=== PATIENT | female | born 1995 | race Caucasian/White ===

== ENCOUNTER 2017-11-17 00:32 | Emergency (ER) | payer SELFPAY ==
[~2017-11-17] VITALS: Ht 170.2 cm; Wt 66.0 kg
[2017-11-17] MEDS ORDERED: ZIPRASIDONE 20 MG INJ IM ONE ×2 (01:29→03:02)
[2017-11-17] MEDS: ZIPRASIDONE 20 MG INJ IM ONE ×2 (01:39→03:10)
[2017-11-17] MEDS: SODIUM CHLORIDE 0.9% 1,000ML IVBOLUS ONE (01:50)
[2017-11-17] MEDS: PLEASE ENTER ALLERGIES MC SCH ×2 (02:10)
[2017-11-17] MEDS ORDERED: LORazepam 2 MG/ML, 1ML ONE (04:44)
[2017-11-17] MEDS: LORazepam 2 MG/ML, 1ML IM PRN (04:45)
[2017-11-17] MEDS: LORazepam 2 MG/ML, 1ML IVPush ONE (04:49)
[2017-11-17 07:43] VITALS: BP 93/54
== END 2017-11-17 10:27 | disposition home or self-care (01) ==
LOC: ED 10:21
DX: F15.129 Other stimulant abuse with intoxication, unspecified (principal); F24 Shared psychotic disorder
CPT/HCPCS: 96361; 96372; 96374; 99284; J3486; J7030

== ENCOUNTER 2017-11-26 14:09 | Emergency (ER) | payer MEDICAID ==
[~2017-11-26] VITALS: Ht 162.6 cm; Wt 59.4 kg
[2017-11-26 14:15] VITALS: BP 118/72
[2017-11-26 14:43] LABS: BASOPHILS # (AUTO) 0.05 x10^3/uL (0-0.1); BASOPHILS % (AUTO) 1 % (0-1); EOSINOPHILS # (AUTO) 0.15 x10^3/uL (0-0.4); EOSINOPHILS % (AUTO) 2 % (1-7); LYMPHOCYTES # (AUTO) 1.72 x10^3/uL (1-3.4); LYMPHOCYTES % (AUTO) 18 % (22-44); MD NO; MEAN CORPUSCULAR HEMOGLOBIN 30.6 pg (27.0-34.8); MEAN CORPUSCULAR HGB CONC 33.6 g/dL (32.4-35.8); MEAN CORPUSCULAR VOLUME 90.9 fL (80-100); MEAN PLATELET VOLUME 7.4 fL (7.4-10.4); MONOCYTES # (AUTO) 0.76 x10^3/uL (0.2-0.8); MONOCYTES % (AUTO) 8 % (2-9); NEUTROPHILS # (AUTO) 6.77 x10^3/uL (1.8-6.8); NEUTROPHILS % (AUTO) 72 % (42-75); PLATELET COUNT 325 x10^3/uL (130-400); RED BLOOD COUNT 4.49 x10^6/uL (3.82-5.3); RED CELL DISTRIBUTION WIDTH 12.9 % (9.6-15.2)
[2017-11-26 14:57] LABS: ALBUMIN 3.5 g/dL (3.4-5.0); ANION GAP 7 mmol/L (5-15); CALCIUM 8.6 mg/dL (8.5-10.1); CHLORIDE 106 mmol/L (98-107)
[2017-11-26 15:00] LABS: CREATINE KINASE, TOTAL 340 U/L (26-192); CREATININE 0.54 mg/dL (0.55-1.02)
[2017-11-26] MEDS ORDERED: POTASSIUM CHLORIDE 20 MEQ TAB.ER.PRT PO ONE (15:30)
[2017-11-26] MEDS ORDERED: ZIPRASIDONE 20 MG INJ IM ONE (16:30)
== END 2017-11-26 17:29 | disposition home or self-care (01) ==
LOC: ED 15:09 → MERGE 15:09 → ED 17:29
DX: R45.1 Restlessness and agitation (principal)
CPT/HCPCS: 36415; 80048; 82040; 82550; 83735; 85025; 99284

== ENCOUNTER 2017-11-30 10:03 | Emergency (ER) | payer MEDICAID, OTHER ==
[~2017-11-30] VITALS: Ht 162.6 cm; Wt 55.0 kg
[2017-11-30 10:38] VITALS: BP 116/75
[2017-11-30 11:54] LABS: HCG UR SG 1.026 (1.003-1.030); MICROSCOPIC AUTO
[2017-11-30 11:57] LABS: CULTURE INDICATED? YES
== END 2017-11-30 12:33 | disposition home or self-care (01) ==
LOC: EDBD 10:03 → ED 12:27
DX: N30.90 Cystitis, unspecified without hematuria (principal); N39.0 Urinary tract infection, site not specified; F15.10 Other stimulant abuse, uncomplicated
CPT/HCPCS: 81001; 81025; 87077; 87086; 87186; 99284

== ENCOUNTER 2017-12-06 23:42 | Emergency (ER) | payer MEDICAID ==
[~2017-12-06] VITALS: Ht 162.6 cm; Wt 52.8 kg
[2017-12-07 00:43] VITALS: BP 103/74
== END 2017-12-07 00:45 | disposition home or self-care (01) ==
LOC: ED 12-07 00:11
DX: H92.09 Otalgia, unspecified ear (principal); Z72.9 Problem related to lifestyle, unspecified; F17.200 Nicotine dependence, unspecified, uncomplicated; J02.9 Acute pharyngitis, unspecified
CPT/HCPCS: 99282

== ENCOUNTER 2018-01-04 15:25 | Emergency (ER) | payer MEDICAID ==
[~2018-01-04] VITALS: Ht 162.6 cm; Wt 60.0 kg
[2018-01-04] MEDS ORDERED: LORazepam 2 MG/ML, 1ML ONE (15:29)
[2018-01-04] MEDS ORDERED: SODIUM CHLORIDE 0.9% 1,000ML IVBOLUS ONE (15:30)
[2018-01-04] MEDS ORDERED: LORazepam 2 MG/ML, 1ML IVPush ONE (15:30)
[2018-01-04] MEDS ORDERED: PLEASE ENTER HEIGHT AND WEIGHT MC SCH (16:00)
[2018-01-04 19:26] VITALS: BP 120/66
== END 2018-01-04 21:31 | disposition home or self-care (01) ==
LOC: ED 20:35
DX: Z00.01 Encounter for general adult medical examination with abnormal findings (principal); F15.10 Other stimulant abuse, uncomplicated
CPT/HCPCS: 36415; 80047; 96361; 96374; 99285; J2060; J7030

== ENCOUNTER 2018-03-11 21:04 | Emergency (ER) | payer MEDICAID ==
[~2018-03-11] VITALS: Ht 160 cm; Wt 52.0 kg
[2018-03-11] MEDS ORDERED: LORazepam 1MG TABLET PO ONE ×2 (21:30→23:30)
[2018-03-11 21:48] LABS: BASOPHILS # (AUTO) 0.03 x10^3/uL (0-0.1); BASOPHILS % (AUTO) 0 % (0-1); EOSINOPHILS # (AUTO) 0.04 x10^3/uL (0-0.4); EOSINOPHILS % (AUTO) 0 % (1-7); LYMPHOCYTES % (AUTO) 15 % (22-44); MD NO; MEAN CORPUSCULAR HEMOGLOBIN 29.6 pg (27.0-34.8); MEAN CORPUSCULAR HGB CONC 33.4 g/dL (32.4-35.8); MEAN CORPUSCULAR VOLUME 88.7 fL (80-100); MEAN PLATELET VOLUME 8.4 fL (7.4-10.4); MONOCYTES # (AUTO) 0.55 x10^3/uL (0.2-0.8); MONOCYTES % (AUTO) 6 % (2-9); NEUTROPHILS # (AUTO) 7.16 x10^3/uL (1.8-6.8); NEUTROPHILS % (AUTO) 78 % (42-75); PLATELET COUNT 268 x10^3/uL (130-400); RED BLOOD COUNT 4.52 x10^6/uL (3.82-5.3); RED CELL DISTRIBUTION WIDTH 13.5 % (9.6-15.2)
[2018-03-11] MEDS ORDERED: LORazepam 1MG TABLET ONE (21:49)
[2018-03-11 21:57] LABS: ANION GAP 7 mmol/L (5-15); CALCIUM 8.8 mg/dL (8.5-10.1); CHLORIDE 107 mmol/L (98-107)
[2018-03-11 22:05] LABS: ALANINE AMINOTRANSFERASE 41 U/L (12-78); ALKALINE PHOSPHATASE 62 U/L (45-117); BILIRUBIN,TOTAL 0.4 mg/dL (0.2-1.0); SALICYLATE LEVEL 2.5 mg/dL (2.8-20.0); TOTAL PROTEIN 7.4 g/dL (6.4-8.2)
[2018-03-11 22:08] LABS: ACETAMINOPHEN < 2 mcg/mL (10-30)
[2018-03-12] MEDS ORDERED: ZIPRASIDONE 20 MG INJ IM ONE ×2 (00:30)
[2018-03-12] MEDS ORDERED: LORazepam 1MG TABLET ONE (00:30)
[2018-03-12 04:50] VITALS: BP 102/56
[2018-03-12] MEDS ORDERED: EPINEPHRINE 1 MG/ML, 1ML ONE (04:59)
[2018-03-12] MEDS ORDERED: methylPREDNISolone SOD SUCC 125 MG/2 ML ONE (04:59)
[2018-03-12] MEDS ORDERED: FAMOTIDINE 20 MG/2 ML ONE (04:59)
[2018-03-12] MEDS ORDERED: DIPHENHYDRAMINE 50 MG/ML, 1ML ONE (04:59)
== END 2018-03-12 04:50 | disposition home or self-care (01) ==
LOC: ED 23:37
DX: F16.159 Hallucinogen abuse with hallucinogen-induced psychotic disorder, unspecified (principal); F15.10 Other stimulant abuse, uncomplicated; F23 Brief psychotic disorder
CPT/HCPCS: 36415; 80053; 80307; 80329; 84703; 85025; 93005; 96372; 99285; J3486; G0480

== ENCOUNTER 2018-04-20 20:01 | Emergency (ER) | payer MEDICAID ==
[~2018-04-20] VITALS: Ht 162.6 cm; Wt 48.0 kg
[2018-04-20] MEDS ORDERED: LORazepam 1MG TABLET PO ONE (21:00)
[2018-04-20 22:48] VITALS: BP 103/63
== END 2018-04-20 22:51 | disposition home or self-care (01) ==
LOC: ED 22:15
DX: F15.129 Other stimulant abuse with intoxication, unspecified (principal); F12.10 Cannabis abuse, uncomplicated
CPT/HCPCS: 99283

== ENCOUNTER 2018-05-02 16:15 | Emergency (ER) | payer MEDICAID ==
[~2018-05-02] VITALS: Ht 162.6 cm; Wt 50.0 kg
[2018-05-02 17:57] VITALS: BP 105/57
== END 2018-05-02 19:20 | disposition home or self-care (01) ==
LOC: ED 19:05
DX: F15.129 Other stimulant abuse with intoxication, unspecified (principal); F41.9 Anxiety disorder, unspecified; F22 Delusional disorders
CPT/HCPCS: 99283

== ENCOUNTER 2018-05-12 20:33 | Emergency (ER) | payer MEDICAID ==
[~2018-05-12] VITALS: Ht 162.6 cm; Wt 50.0 kg
[2018-05-12 20:33] VITALS: BP 108/70
== END 2018-05-12 21:52 | disposition home or self-care (01) ==
LOC: ED 21:01
DX: F15.129 Other stimulant abuse with intoxication, unspecified (principal)
CPT/HCPCS: 99283

== ENCOUNTER 2018-09-18 04:28 | Emergency (ER) | payer MEDICAID ==
[~2018-09-18] VITALS: Ht 157.5 cm; Wt 60.0 kg
[2018-09-18] MEDS ORDERED: HALOPERIDOL 5 MG/ML ONE (05:20)
[2018-09-18] MEDS ORDERED: HALOPERIDOL 5 MG/ML IM ONE (06:00)
[2018-09-18 09:24] VITALS: BP 107/52
== END 2018-09-18 11:05 | disposition home or self-care (01) ==
LOC: MERGE 10:45 → EDBD 10:45 → ED 10:45
DX: F15.959 Other stimulant use, unspecified with stimulant-induced psychotic disorder, unspecified (principal)
CPT/HCPCS: 96372; 99283; J1630

== ENCOUNTER 2018-09-24 21:00 | Emergency (ER) | payer MEDICAID ==
[~2018-09-24] VITALS: Ht 170.2 cm; Wt 60.0 kg
[2018-09-24 21:05] VITALS: BP 103/67
== END 2018-09-24 21:27 | disposition home or self-care (01) ==
LOC: ED 21:20
DX: T43.625A Adverse effect of amphetamines, initial encounter (principal); F41.9 Anxiety disorder, unspecified; F19.229 Other psychoactive substance dependence with intoxication, unspecified; F29 Unspecified psychosis not due to a substance or known physiological condition; Z72.9 Problem related to lifestyle, unspecified; Z75.9 Unspecified problem related to medical facilities and other health care; Z63.8 Other specified problems related to primary support group; Y92.89 Other specified places as the place of occurrence of the external cause
CPT/HCPCS: 99283

== ENCOUNTER 2018-09-28 | Emergency (ER) | payer MEDICAID ==
[~2018-09-28] VITALS: Ht 167.6 cm; Wt 60.0 kg
[2018-09-28] MEDS ORDERED: DIPHENHYDRAMINE 50 MG/ML, 1ML IVPush ONE (00:30)
[2018-09-28 00:32] LABS: BASOPHILS # (AUTO) 0.06 x10^3/uL (0-0.1); BASOPHILS % (AUTO) 0 % (0-1); EOSINOPHILS # (AUTO) 0.06 x10^3/uL (0-0.4); EOSINOPHILS % (AUTO) 0 % (1-7); LYMPHOCYTES # (AUTO) 1.69 x10^3/uL (1-3.4); LYMPHOCYTES % (AUTO) 10 % (22-44); MD NO; MEAN CORPUSCULAR HEMOGLOBIN 32.6 pg (27.0-34.8); MEAN CORPUSCULAR HGB CONC 34.5 g/dL (32.4-35.8); MEAN CORPUSCULAR VOLUME 94.4 fL (80-100); MEAN PLATELET VOLUME 7.1 fL (7.4-10.4); MONOCYTES # (AUTO) 0.89 x10^3/uL (0.2-0.8); MONOCYTES % (AUTO) 5 % (2-9); NEUTROPHILS # (AUTO) 14.62 x10^3/uL (1.8-6.8); NEUTROPHILS % (AUTO) 84 % (42-75); PLATELET COUNT 334 x10^3/uL (130-400); RED CELL DISTRIBUTION WIDTH 11.5 % (9.6-15.2)
[2018-09-28 00:41] LABS: ALANINE AMINOTRANSFERASE 55 U/L (12-78); ALBUMIN 2.8 g/dL (3.4-5.0); ANION GAP 13 mmol/L (5-15); CALCIUM 8.5 mg/dL (8.5-10.1); CHLORIDE 109 mmol/L (98-107); CREATININE 0.51 mg/dL (0.55-1.02)
[2018-09-28 00:43] LABS: ACETAMINOPHEN < 2 mcg/mL (10-30); ALKALINE PHOSPHATASE 151 U/L (45-117); BILIRUBIN,TOTAL 0.9 mg/dL (0.2-1.0); TOTAL PROTEIN 6.6 g/dL (6.4-8.2)
[2018-09-28] MEDS ORDERED: DIPHENHYDRAMINE 50 MG/ML, 1ML ONE (01:26)
[2018-09-28 06:21] VITALS: BP 98/60
== END 2018-09-28 06:49 | disposition home or self-care (01) ==
LOC: ED 00:06
DX: O99.324 Drug use complicating childbirth (principal); O99.344 Other mental disorders complicating childbirth; O99.334 Smoking (tobacco) complicating childbirth; F15.229 Other stimulant dependence with intoxication, unspecified; F29 Unspecified psychosis not due to a substance or known physiological condition; Z87.440 Personal history of urinary (tract) infections; Z3A.28 28 weeks gestation of pregnancy; Y92.89 Other specified places as the place of occurrence of the external cause
CPT/HCPCS: 36415; 70450; 76856; 80053; 80307; 80329; 85025; 96374; 99285; J1200; G0480

== ENCOUNTER 2018-09-28 10:58 | Emergency (ER) | payer MEDICAID ==
[~2018-09-28] VITALS: Ht 154.9 cm; Wt 63.5 kg
[2018-09-28 12:25] LABS: AMPHETAMINE SCREEN, URINE Positive (Negative); BARBITURATE SCREEN, URINE Negative (Negative); BENZODIAZEPINE SCREEN, URINE Negative (Negative); CANNABINOID SCREEN, URINE Negative (Negative); COCAINE SCREEN, URINE Negative (Negative); METHADONE SCREEN, URINE Negative (Negative); OPIATE SCREEN, URINE Negative (Negative)
[2018-09-28 15:57] VITALS: BP 103/81
== END 2018-09-28 16:51 | disposition home or self-care (01) ==
LOC: ED 11:06
DX: O99.322 Drug use complicating pregnancy, second trimester (principal); O99.332 Smoking (tobacco) complicating pregnancy, second trimester; F15.10 Other stimulant abuse, uncomplicated; F17.200 Nicotine dependence, unspecified, uncomplicated; F29 Unspecified psychosis not due to a substance or known physiological condition; Z3A.28 28 weeks gestation of pregnancy; Z72.9 Problem related to lifestyle, unspecified; Z63.8 Other specified problems related to primary support group
CPT/HCPCS: 36415; 80074; 80307; 86592; 87521; 87806; 99284; G0475

== ENCOUNTER 2018-10-05 10:40 | Inpatient (IN) | payer MEDICAID ==
[~2018-10-05] VITALS: Ht 165.1 cm; Wt 61.2 kg
[2018-10-05] MEDS ORDERED: LORazepam 2 MG/ML, 1ML ONE ×2 (10:50→12:10)
[2018-10-05] MEDS ORDERED: LORazepam 2 MG/ML, 1ML IM ONE ×2 (11:00→13:00)
[2018-10-05] MEDS ORDERED: SODIUM CHLORIDE FLUSH 10ML SYR IVF ONE (11:30)
[2018-10-05] MEDS ORDERED: SODIUM CHLORIDE 0.9% 1,000ML IVBOLUS ONE (11:30)
[2018-10-05 11:36] LABS: BASOPHILS # (AUTO) 0.04 x10^3/uL (0-0.1); BASOPHILS % (AUTO) 0 % (0-1); EOSINOPHILS # (AUTO) 0.06 x10^3/uL (0-0.4); EOSINOPHILS % (AUTO) 1 % (1-7); LYMPHOCYTES # (AUTO) 1.91 x10^3/uL (1-3.4); LYMPHOCYTES % (AUTO) 16 % (22-44); MD NO; MEAN CORPUSCULAR HEMOGLOBIN 32.5 pg (27.0-34.8); MEAN CORPUSCULAR HGB CONC 34.6 g/dL (32.4-35.8); MEAN CORPUSCULAR VOLUME 93.8 fL (80-100); MONOCYTES # (AUTO) 0.77 x10^3/uL (0.2-0.8); MONOCYTES % (AUTO) 6 % (2-9); NEUTROPHILS # (AUTO) 9.27 x10^3/uL (1.8-6.8); NEUTROPHILS % (AUTO) 77 % (42-75); PLATELET COUNT 341 x10^3/uL (130-400); RED BLOOD COUNT 3.82 x10^6/uL (3.82-5.3); RED CELL DISTRIBUTION WIDTH 11.5 % (9.6-15.2)
[2018-10-05 11:51] LABS: ALANINE AMINOTRANSFERASE 68 U/L (12-78); ALBUMIN 2.8 g/dL (3.4-5.0); ANION GAP 8 mmol/L (5-15); CALCIUM 8.6 mg/dL (8.5-10.1); CHLORIDE 107 mmol/L (98-107)
[2018-10-05 11:54] LABS: ALKALINE PHOSPHATASE 151 U/L (45-117); BILIRUBIN,TOTAL 0.6 mg/dL (0.2-1.0); CREATININE 0.52 mg/dL (0.55-1.02); TOTAL PROTEIN 6.7 g/dL (6.4-8.2)
[2018-10-05 16:00] VITALS: BP 95/61
[2018-10-05] MEDS ORDERED: ONDANSETRON 2MG/ML, 2ML IVPush PRN (16:00)
[2018-10-05] MEDS: LORazepam 2 MG/ML, 1ML IVPush PRN (16:17)
[2018-10-05] MEDS: SODIUM CHLORIDE 0.9% 1,000 ML IV SCH (16:17)
[2018-10-05] MEDS: NICOTINE 14MG/24 HR PATCH.TD24 TD SCH (16:24)
[2018-10-05] MEDS ORDERED: PLEASE ENTER PATIENTS HEIGHT MC SCH (16:30)
[2018-10-05 16:31] LABS: CREATINE KINASE, TOTAL 333 U/L (26-192)
[2018-10-05 21:45] VITALS: BP 102/64
[2018-10-06] MEDS: SODIUM CHLORIDE 0.9% 1,000 ML IV SCH ×2 (01:48→19:51)
[2018-10-06 02:15] VITALS: BP 99/60
[2018-10-06 03:22] LABS: CULTURE INDICATED? YES; MICROSCOPIC INDICATED
[2018-10-06 03:36] LABS: AMPHETAMINE SCREEN, URINE Positive (Negative); BARBITURATE SCREEN, URINE Negative (Negative); BENZODIAZEPINE SCREEN, URINE Negative (Negative); CANNABINOID SCREEN, URINE Negative (Negative); COCAINE SCREEN, URINE Negative (Negative); METHADONE SCREEN, URINE Negative (Negative); OPIATE SCREEN, URINE Negative (Negative)
[2018-10-06 06:49] VITALS: BP 96/57
[2018-10-06 14:25] VITALS: BP 99/83
[2018-10-06] MEDS: NICOTINE 14MG/24 HR PATCH.TD24 TD SCH (16:25)
[2018-10-06 19:09] VITALS: BP 101/63
[2018-10-06] MEDS: LORazepam 2 MG/ML, 1ML IVPush PRN (19:51)
[2018-10-06] MEDS ORDERED: DOCUSATE 100 MG CAPSULE PO PRN (20:30)
[2018-10-07 01:50] VITALS: BP 125/76
[2018-10-07 04:58] LABS: BASOPHILS # (AUTO) 0.02 x10^3/uL (0-0.1); BASOPHILS % (AUTO) 0 % (0-1); EOSINOPHILS # (AUTO) 0.08 x10^3/uL (0-0.4); EOSINOPHILS % (AUTO) 1 % (1-7); LYMPHOCYTES # (AUTO) 1.89 x10^3/uL (1-3.4); LYMPHOCYTES % (AUTO) 23 % (22-44); MD NO; MEAN CORPUSCULAR HEMOGLOBIN 32.2 pg (27.0-34.8); MEAN CORPUSCULAR HGB CONC 34.1 g/dL (32.4-35.8); MEAN CORPUSCULAR VOLUME 94.6 fL (80-100); MEAN PLATELET VOLUME 7.3 fL (7.4-10.4); MONOCYTES # (AUTO) 0.59 x10^3/uL (0.2-0.8); MONOCYTES % (AUTO) 7 % (2-9); NEUTROPHILS # (AUTO) 5.69 x10^3/uL (1.8-6.8); NEUTROPHILS % (AUTO) 69 % (42-75); PLATELET COUNT 237 x10^3/uL (130-400); RED BLOOD COUNT 3.32 x10^6/uL (3.82-5.3); RED CELL DISTRIBUTION WIDTH 11.8 % (9.6-15.2)
[2018-10-07 05:00] LABS: CHLORIDE 114 mmol/L (98-107)
[2018-10-07 05:05] LABS: ALANINE AMINOTRANSFERASE 53 U/L (12-78); ALBUMIN 2.1 g/dL (3.4-5.0); ALKALINE PHOSPHATASE 113 U/L (45-117); ANION GAP 7 mmol/L (5-15); BILIRUBIN,TOTAL 0.3 mg/dL (0.2-1.0); CALCIUM 7.6 mg/dL (8.5-10.1); CREATINE KINASE, TOTAL 144 U/L (26-192); CREATININE 0.35 mg/dL (0.55-1.02); TOTAL PROTEIN 5.3 g/dL (6.4-8.2)
[2018-10-07 08:47] VITALS: BP 102/69
[2018-10-07] MEDS: PRENATAL VIT/IRON/FA 1 EACH TABLET PO SCH (09:14)
[2018-10-07 12:50] VITALS: BP 97/64
[2018-10-07] MEDS: ACETAMINOPHEN 325 MG TABLET PO PRN (16:35)
[2018-10-07] MEDS: LORazepam 2 MG/ML, 1ML IVPush PRN (16:35)
[2018-10-07] MEDS: NICOTINE 14MG/24 HR PATCH.TD24 TD SCH (16:35)
[2018-10-07 19:23] VITALS: BP 103/68
[2018-10-08] MEDS: ACETAMINOPHEN 325 MG TABLET PO PRN ×3 (01:24→21:22)
[2018-10-08 01:31] VITALS: BP 106/72
[2018-10-08] MEDS: LORazepam 2 MG/ML, 1ML IVPush PRN (02:25)
[2018-10-08 08:30] VITALS: BP 89/53
[2018-10-08] MEDS: PRENATAL VIT/IRON/FA 1 EACH TABLET PO SCH (11:15)
[2018-10-08 13:00] VITALS: BP 103/66
[2018-10-08] MEDS ORDERED: metroNIDAZOLE 500 MG TABLET ONE (13:48)
[2018-10-08] MEDS: metroNIDAZOLE 500 MG TABLET PO SCH ×2 (13:49→21:22)
[2018-10-08] MEDS: NICOTINE 14MG/24 HR PATCH.TD24 TD SCH (16:04)
[2018-10-08] MEDS ORDERED: metroNIDAZOLE 500 MG TABLET PO SCH (21:00)
[2018-10-08 21:18] VITALS: BP 103/65
[2018-10-09 02:22] VITALS: BP 117/62
[2018-10-09 07:10] VITALS: BP 101/64
[2018-10-09] MEDS: metroNIDAZOLE 500 MG TABLET PO SCH (10:09)
[2018-10-09] MEDS: PRENATAL VIT/IRON/FA 1 EACH TABLET PO SCH (10:09)
[2018-10-09] MEDS ORDERED: DOCU-131 PO (10:11)
[2018-10-09] MEDS ORDERED: Prenatal Vit/Iron/Fa PO (10:11)
[2018-10-09] MEDS ORDERED: METR500T PO (10:11)
== END 2018-10-09 14:03 | disposition home or self-care (01) | DRG 831 ==
LOC: ED 12:19 → EDIP 14:27 → 3NE 15:50
PROVIDERS: ADMIT Hospitalist; ATTEND Hospitalist
DX: O9A.213 Injury, poisoning and certain other consequences of external causes complicating pregnancy, third trimester (principal); G92 Toxic encephalopathy; M62.82 Rhabdomyolysis; O41.03X0 Oligohydramnios, third trimester, not applicable or unspecified; O98.413 Viral hepatitis complicating pregnancy, third trimester; T43.621A Poisoning by amphetamines, accidental (unintentional), initial encounter; E86.0 Dehydration; T40.3X1A Poisoning by methadone, accidental (unintentional), initial encounter; O16.3 Unspecified maternal hypertension, third trimester; O99.323 Drug use complicating pregnancy, third trimester; B19.20 Unspecified viral hepatitis C without hepatic coma; N76.0 Acute vaginitis; F15.129 Other stimulant abuse with intoxication, unspecified; O99.283 Endocrine, nutritional and metabolic diseases complicating pregnancy, third trimester; R21 Rash and other nonspecific skin eruption; O99.353 Diseases of the nervous system complicating pregnancy, third trimester; Z3A.29 29 weeks gestation of pregnancy; Y92.89 Other specified places as the place of occurrence of the external cause; Z87.440 Personal history of urinary (tract) infections
CPT/HCPCS: 36415; 76815; 80053; 80074; 80307; 81001; 82550; 83605; 83735; 84100; 85025; 86592; 86762; 86850; 86900; 87040; 87086; 87521; 87806; 96360; 96361; 96372; G0378; G0475; J2060; J7030

== ENCOUNTER 2018-10-11 18:56 | Emergency (ER) | payer MEDICAID ==
[~2018-10-11] VITALS: Ht 170.2 cm; Wt 65.0 kg
[~2018-10-11 18:56] MED LIST: DOCU-131 PO; METR500T PO; Prenatal Vit/Iron/Fa PO
[2018-10-11 19:17] VITALS: BP 127/69
[2018-10-11] MEDS ORDERED: DIPHENHYDRAMINE 50 MG CAPSULE ONE (19:46)
[2018-10-11 19:59] LABS: BASOPHILS # (AUTO) 0.05 x10^3/uL (0-0.1); BASOPHILS % (AUTO) 0 % (0-1); EOSINOPHILS # (AUTO) 0.04 x10^3/uL (0-0.4); EOSINOPHILS % (AUTO) 0 % (1-7); LYMPHOCYTES # (AUTO) 1.62 x10^3/uL (1-3.4); LYMPHOCYTES % (AUTO) 13 % (22-44); MD NO; MEAN CORPUSCULAR HEMOGLOBIN 32.3 pg (27.0-34.8); MEAN CORPUSCULAR HGB CONC 34.7 g/dL (32.4-35.8); MEAN PLATELET VOLUME 7.3 fL (7.4-10.4); MONOCYTES # (AUTO) 0.85 x10^3/uL (0.2-0.8); MONOCYTES % (AUTO) 7 % (2-9); NEUTROPHILS % (AUTO) 80 % (42-75); PLATELET COUNT 343 x10^3/uL (130-400); RED BLOOD COUNT 3.76 x10^6/uL (3.82-5.3); RED CELL DISTRIBUTION WIDTH 12.2 % (9.6-15.2)
[2018-10-11] MEDS ORDERED: DIPHENHYDRAMINE 25 MG CAPSULE PO ONE (20:00)
[2018-10-11 20:04] LABS: ANION GAP 12 mmol/L (5-15); CALCIUM 8.8 mg/dL (8.5-10.1); CHLORIDE 106 mmol/L (98-107); CREATININE 0.56 mg/dL (0.55-1.02)
[2018-10-11 20:07] LABS: CREATINE KINASE, TOTAL 180 U/L (26-192)
== END 2018-10-12 02:20 | disposition home or self-care (01) ==
LOC: ED 19:15
DX: F15.129 Other stimulant abuse with intoxication, unspecified (principal); O26.893 Other specified pregnancy related conditions, third trimester; Z3A.30 30 weeks gestation of pregnancy; L25.1 Unspecified contact dermatitis due to drugs in contact with skin; Z72.9 Problem related to lifestyle, unspecified
CPT/HCPCS: 36415; 80048; 82550; 85025; 99284; Q0163

== ENCOUNTER 2018-10-18 23:47 | Emergency (ER) | payer MEDICAID ==
[~2018-10-18] VITALS: Ht 162.6 cm; Wt 59.9 kg
[2018-10-18 23:53] VITALS: BP 106/58
== END 2018-10-19 01:22 | disposition other institution (70) ==
LOC: ED 23:59
DX: O36.8130 Decreased fetal movements, third trimester, not applicable or unspecified (principal); Z3A.30 30 weeks gestation of pregnancy; R10.32 Left lower quadrant pain; Z72.9 Problem related to lifestyle, unspecified
CPT/HCPCS: 99283

== ENCOUNTER 2018-10-19 01:01 | Outpatient (CLI) | payer MEDICAID ==
[~2018-10-19] VITALS: Ht 162.6 cm; Wt 62.0 kg
[2018-10-19 02:33] LABS: CLUE CELLS NONE SEEN (NONE SEEN); WET PREP WBCS NONE SEEN (FEW)
== END 2018-10-19 03:50 | disposition home or self-care (01) ==
LOC: LDOP 01:01
PROVIDERS: ATTEND Obstetrics & Gynecology
DX: O36.8130 Decreased fetal movements, third trimester, not applicable or unspecified (principal); Z3A.32 32 weeks gestation of pregnancy
CPT/HCPCS: 59025; 87210; 87491; 87591; 87808; 89060; 99211; G0463; Q0114

== ENCOUNTER 2018-10-25 12:20 | Emergency (ER) | payer MEDICAID ==
[2018-10-25 19:25] VITALS: BP 138/72
== END 2018-10-25 21:33 | disposition home or self-care (01) ==
LOC: ED 19:03
DX: F15.922 Other stimulant use, unspecified with intoxication with perceptual disturbance (principal); R44.3 Hallucinations, unspecified; Z87.440 Personal history of urinary (tract) infections; Z72.9 Problem related to lifestyle, unspecified
CPT/HCPCS: 99283

== ENCOUNTER 2019-06-24 13:20 | Emergency (ER) | payer MEDICAID ==
[~2019-06-24] VITALS: Ht 162.6 cm; Wt 67.2 kg
[2019-06-24 14:26] VITALS: BP 121/77
== END 2019-06-24 16:13 | disposition home or self-care (01) ==
LOC: ED 14:19
DX: F15.129 Other stimulant abuse with intoxication, unspecified (principal); R33.9 Retention of urine, unspecified
CPT/HCPCS: 81001; 87086; 87147; 99284

== ENCOUNTER 2019-12-05 09:51 | Emergency (ER) | payer SELFPAY ==
[~2019-12-05] VITALS: Ht 162.6 cm; Wt 59.7 kg
[~2019-12-05 09:51] MED LIST changes: +AMOX1TAB64 PO; +IBUP-1222 PO
[2019-12-05 10:00] VITALS: BP 105/58
[2019-12-05] MEDS ORDERED: LORazepam 2 MG/ML, 1ML ONE (10:14)
--- NOTE | 2019-12-05 10:23 | NUR ---
pt presents to ed after admitting to meth use. pt is alternating between crying and laughing and talking very quickly and is hard to understand. pt is not aggressive toward staff at this time. pt is agreeable to medication "to help me calm down," but is refusing vs and physical exam. upon returing to room, pt was unclothed and continued to show private areas despite being asked to remain covered. pt educated that it is inappropriate to be unclothed and was agreeable to covering up.
--- NOTE | 2019-12-05 10:29 | NUR ---
pt medicated per mar with assistance from edta. pt calm and cooperative and resting, covered, in [place].
[2019-12-05] MEDS ORDERED: LORazepam 2 MG/ML, 1ML IM ONE (10:30)
--- NOTE | 2019-12-05 10:34 | NUR ---
pt continues to yell and fight with "the elva and demons," and is tearful and appears scared. pt is unable to carry out a conversation in reality. Dr. Rodriguez notified and will add medication.
--- NOTE | 2019-12-05 11:48 | NUR ---
pt resting in room with eyes closed and lights dimmed. pt calm with even, unlabored respirations. no needs expressed. call light within reach.
--- NOTE | 2019-12-05 12:51 | NUR ---
pt resting in room with eyes closed and lights dimmed. pt appears asleep. when this rn attempts to wake pt, she yells that there is a cat in the corner of the room and immediately falls back to sleep. pt unable to stay awake for more than a few moments. not ready for dc at this time. will continue to monitor.
--- NOTE | 2019-12-05 14:07 | NUR ---
pt remains in position of comfort in [facility]. respirations even and unlabored. no distress noted. upon attempting to wake pt, she mumbles and closes eyes again. not appropriate to ambulate at this time. will continue to monitor.
--- NOTE | 2019-12-05 15:34 | NUR ---
pt resting in gurney in position of comfort. respirations even and unlabored. pt unable to keep eyes open for more than 3 seconds before falling back to sleep. pt continues to refuse monitoring equipment. unable to assess vs. no distress noted. will continue to monitor.
--- NOTE | 2019-12-05 16:57 | NUR ---
pt able to awakena nd ambulate with steady gait. pt attempting to dress self. plan to dc after dressed.
--- NOTE | 2019-12-05 17:06 | NUR ---
Dr. Isaacs to bs per pt request. pt states she has a "blocked nose" that she wants checked out.
--- NOTE | 2019-12-05 17:35 | NUR ---
LUNCH RN: PT CURRENTLY GETTING DRESSED. GIVEN CLOTHING BY PRIMARY RN. PT ABLE TO AMBULATE WITH STEADY GAIT. DC PAPERS GIVEN TO PT WELL BUS PASS
== END 2019-12-05 17:38 | disposition home or self-care (01) ==
LOC: ED 11:27
DX: F15.129 Other stimulant abuse with intoxication, unspecified (principal)
CPT/HCPCS: 96372; 99281; J2060; 99283

== ENCOUNTER 2020-07-19 02:47 | Emergency (ER) | payer MEDICAID ==
[~2020-07-19] VITALS: Ht 162.6 cm; Wt 80.6 kg
--- NOTE | 2020-07-19 03:11 | NUR ---
PT STATES SHE CAME IN "BECAUSE I HAVE ROACHES". PT UNABLE TO ELABORATE. PT IS EXTREMELY FIDGETY, STATES SHE RECENTLY USED METH. PT GROSS NEURO INTACT, ANOx4, VSS, PT DENIES MEDICAL HISTORY. PULSES 2+. WCTM. PT PLACED ON SPO2/BP MONITORING.
--- NOTE | 2020-07-19 03:33 | NUR ---
Franklin CURTIS and Aleyda KANG at for eval and poc. pt repeatedly itching self and cannot stop moving in [place]. pt NAD, WCTM. given warm blanket for comfort.
--- NOTE | 2020-07-19 04:34 | NUR ---
PT AMBULATED TO AND FROM RESTROOM. URINE DRUG SCREEN WALKED TO LAB, PT BACK TO ROOM, LAYING ON ALIX PEREZ, REFUSING VITALS AT THIS TIME. MO. MTF.
[2020-07-19 05:02] LABS: AMPHETAMINE SCREEN, URINE Positive (Negative); BARBITURATE SCREEN, URINE Negative (Negative); BENZODIAZEPINE SCREEN, URINE Negative (Negative); CANNABINOID SCREEN, URINE Negative (Negative); COCAINE SCREEN, URINE Negative (Negative); METHADONE SCREEN, URINE Negative (Negative); OPIATE SCREEN, URINE Negative (Negative)
--- NOTE | 2020-07-19 05:08 | NUR ---
PT RESTING ON GURNEY, NAD, EYES CLOSED, APPEARS COMFORTABLE. LIGHTS DIMMED FOR COMFORT, WCTM. MTF.
[2020-07-19 05:29] LABS: BASOPHILS # (AUTO) 0.05 x10^3/uL (0-0.1); BASOPHILS % (AUTO) 1 % (0-1); EOSINOPHILS # (AUTO) 0.34 x10^3/uL (0-0.4); EOSINOPHILS % (AUTO) 4 % (1-7); LYMPHOCYTES # (AUTO) 2.63 x10^3/uL (1-3.4); LYMPHOCYTES % (AUTO) 28 % (22-44); MD NO; MEAN CORPUSCULAR HEMOGLOBIN 30.3 pg (27.0-34.8); MEAN CORPUSCULAR HGB CONC 33.8 g/dL (32.4-35.8); MEAN CORPUSCULAR VOLUME 89.6 fL (80-100); MEAN PLATELET VOLUME 7.9 fL (7.4-10.4); MONOCYTES # (AUTO) 0.62 x10^3/uL (0.2-0.8); MONOCYTES % (AUTO) 7 % (2-9); NEUTROPHILS # (AUTO) 5.77 x10^3/uL (1.8-6.8); NEUTROPHILS % (AUTO) 61 % (42-75); PLATELET COUNT 327 x10^3/uL (130-400); RED BLOOD COUNT 4.41 x10^6/uL (3.82-5.3); RED CELL DISTRIBUTION WIDTH 12.5 % (9.6-15.2)
[2020-07-19 05:41] LABS: ALBUMIN 4.1 g/dL (3.4-5.0); ANION GAP 7 mmol/L (5-15); CALCIUM 8.6 mg/dL (8.5-10.1); CHLORIDE 114 mmol/L (98-107)
[2020-07-19 05:46] LABS: ALANINE AMINOTRANSFERASE 92 U/L (12-78); ALKALINE PHOSPHATASE 100 U/L (45-117); BILIRUBIN,TOTAL 0.6 mg/dL (0.2-1.0); CREATININE 0.71 mg/dL (0.55-1.02); TOTAL PROTEIN 7.3 g/dL (6.4-8.2)
[2020-07-19 05:54] LABS: HCG UR SG 1.042 (1.003-1.030)
--- NOTE | 2020-07-19 06:02 | NUR ---
Patient given discharge instructions and they have confirmed that they understand the instructions. Patient ambulatory. NAD, VSS, NO BELONGINGS LEFT IN ROOM AT TIME OF DC.
[2020-07-19 06:03] VITALS: BP 101/53
== END 2020-07-19 06:05 | disposition home or self-care (01) ==
LOC: ED 05:50
DX: F15.20 Other stimulant dependence, uncomplicated (principal); F41.9 Anxiety disorder, unspecified; F22 Delusional disorders
CPT/HCPCS: 36415; 80053; 80307; 81025; 84703; 85025; 99283

== ENCOUNTER 2020-07-24 11:24 | Emergency (ER) | payer MEDICAID ==
[~2020-07-24] VITALS: Ht 165.1 cm; Wt 145.0 kg
--- NOTE | 2020-07-24 12:03 | NUR ---
Pt given Haldol by [facility] [employer]. Not a safe DC at this time. Arousable, but lethargic. CN and provider aware. Will monitor.
--- NOTE | 2020-07-24 12:24 | NUR ---
Pt sleeping, resp even, unlabored. Bed rails up, bed locked.
[2020-07-24 12:45] VITALS: BP 108/46
--- NOTE | 2020-07-24 13:07 | NUR ---
Pt able to ambulate. Provided with taxi voucher.
== END 2020-07-24 13:10 | disposition home or self-care (01) ==
LOC: ED 12:55
DX: F15.129 Other stimulant abuse with intoxication, unspecified (principal); R41.82 Altered mental status, unspecified; R45.1 Restlessness and agitation; F17.210 Nicotine dependence, cigarettes, uncomplicated
CPT/HCPCS: 99283; 99406

== ENCOUNTER 2020-07-30 12:39 | Emergency (ER) | payer MEDICAID ==
--- NOTE | 2020-07-30 12:59 | NUR ---
BIB [facility] FOR "BEHAVIORAL ISSUES" AND SUSPECTED METH WITHDRAWL CALLED BY [employer]. PT AGITATED ON ARRIVAL AND VERY FIDGETY, STATING HER FEET HURT AND SHE HAS RECENTLY TAKEN METH. PT PLACED ON MONITOR, VSS. ADRIEL KANG AT BEDSIDE. SHAGGY HERNANDEZ AT BEDSIDE TO CLEAN WOUNDS ON FEET.
[2020-07-30 13:39] LABS: BASOPHILS # (AUTO) 0.15 x10^3/uL (0-0.1); BASOPHILS % (AUTO) 2 % (0-1); EOSINOPHILS # (AUTO) 0.18 x10^3/uL (0-0.4); EOSINOPHILS % (AUTO) 2 % (1-7); LYMPHOCYTES % (AUTO) 26 % (22-44); MD NO; MEAN CORPUSCULAR HEMOGLOBIN 29.8 pg (27.0-34.8); MEAN CORPUSCULAR HGB CONC 33.5 g/dL (32.4-35.8); MEAN CORPUSCULAR VOLUME 88.8 fL (80-100); MEAN PLATELET VOLUME 8.8 fL (7.4-10.4); MONOCYTES # (AUTO) 0.96 x10^3/uL (0.2-0.8); MONOCYTES % (AUTO) 10 % (2-9); NEUTROPHILS # (AUTO) 5.71 x10^3/uL (1.8-6.8); NEUTROPHILS % (AUTO) 60 % (42-75); PLATELET COUNT 285 x10^3/uL (130-400); RED BLOOD COUNT 4.64 x10^6/uL (3.82-5.3); RED CELL DISTRIBUTION WIDTH 12.3 % (9.6-15.2)
[2020-07-30 13:45] LABS: ANION GAP 9 mmol/L (5-15); CHLORIDE 106 mmol/L (98-107); CREATININE 0.73 mg/dL (0.55-1.02)
[2020-07-30 13:49] LABS: SALICYLATE LEVEL 1.9 mg/dL (2.8-20.0)
[2020-07-30 14:11] VITALS: BP 117/73
--- NOTE | 2020-07-30 14:12 | NUR ---
PT DISCHARGED WITH HOSPITAL SOCKS AND SHOES. PT REFUSED SHOES.
== END 2020-07-30 14:13 | disposition home or self-care (01) ==
LOC: ED 13:36
DX: F15.159 Other stimulant abuse with stimulant-induced psychotic disorder, unspecified (principal); F41.9 Anxiety disorder, unspecified
CPT/HCPCS: 36415; 80048; 80307; 82040; 84703; 85025; 99283

== ENCOUNTER 2020-08-08 23:36 | Emergency (ER) | payer MEDICAID ==
[~2020-08-08] VITALS: Ht 157.5 cm; Wt 72.9 kg
[2020-08-08 23:40] VITALS: BP 110/75
--- NOTE | 2020-08-09 02:19 | NUR ---
PT BECAME AGGRESSIVE IN LOBBY, REFUSING TO KEEP MASK ON, SCREAMING, SECURITY INTERVENTION, PT LEAVES AT THIS TIME
== END 2020-08-09 02:21 | disposition left against medical advice (07) ==
LOC: ED 08-09 02:10
DX: M25.579 Pain in unspecified ankle and joints of unspecified foot (principal); Z53.21 Procedure and treatment not carried out due to patient leaving prior to being seen by health care provider